=== PATIENT | female | born 1985 | race Caucasian/White ===

== ENCOUNTER 2019-03-20 10:13 | Emergency (ER) | payer OTHER ==
[~2019-03-20] VITALS: Ht 177.8 cm; Wt 63.6 kg
[2019-03-20 10:36] VITALS: TEMP 97.4
[2019-03-20] MEDS ORDERED: FLONASEALLERGY NS (11:15)
[2019-03-20] MEDS ORDERED: CLARITIN D TAB1 TAB PO (11:16)
[2019-03-20] MEDS ORDERED: TYLENOL 325MG325 MG PO (11:16)
[2019-03-20] MEDS ORDERED: ADVIL200 MG PO (11:16)
[2019-03-20 11:50] LABS: COLLECTION METHOD CLEAN CATCH
[2019-03-20 11:58] LABS: BASO # 0.1 (0.0-0.2); BASO % 0.8 % (0.0-2.0); EOS # 0.1 (0.0-0.7); EOS % 1.7 % (0-4.0); GRAN # 2.9 (1.4-6.5); GRAN % 48.8 % (42.2-75.2); HEMATOCRIT 38.9 % (37.0-47.0); HEMOGLOBIN 12.8 g/dl (12.5-16.0); LYMPH # 2.4 (1.2-3.4); MEAN CELL VOLUME 91 fl (80.0-100.0); MEAN CORPUSCULAR HEMOGLOBIN 30 pg (27.0-31.0); MEAN CORPUSCULAR HGB CONC 33 g/dl (33.0-37.0); MEAN PLATELET VOLUME 9.6 fl (7.4-10.4); MONO # 0.5 (0.1-0.6); MONO % 8.4 % (1.7-9.3); PLATELET COUNT 246 K/mm3 (130-400); REDCELL DISTRIBUTION WIDTH-CV 12.5 % (11.5-14.5)
[2019-03-20 12:05] LABS: PH 8 (5-8); SQUAMOUS EPITHELIAL None Seen /hpf; URINE APPEARANCE Clear; URINE BACTERIA None Seen /hpf; URINE BILIRUBIN Negative (NEGATIVE); URINE BLOOD Negative (NEGATIVE); URINE COLOR Straw; URINE GLUCOSE Negative (NEGATIVE); URINE KETONE Negative (NEGATIVE); URINE LEUKOCYTE ESTERASE Negative (NEGATIVE); URINE NITRATE Negative (NEGATIVE); URINE PROTEIN(semi-quant) Negative (NEGATIVE); URINE RBC None Seen /hpf; URINE UROBILINOGEN Negative (NEGATIVE)
[2019-03-20 12:14] LABS: ALANINE AMINOTRANSFERASE 18 U/L (9-52); ALBUMIN 4.5 gm/dL (3.5-5.0); ALKALINE PHOSPHATASE 55 U/L (50-136); ANION GAP 12 mmol/L (7-16); AST,SGOT 28 U/L (15-37); BLOOD UREA NITROGEN 15 mg/dL (7-17); CALCIUM 9.3 mg/dL (8.4-10.2); CARBON DIOXIDE 24 mmol/L (22-30); CHLORIDE 105 mmol/L (98-107); CREATININE, serum 0.59 (0.52-1.25); GLUCOSE 97 mg/dL (74-106); POTASSIUM 4.1 mmol/L (3.4-5.0); SODIUM 141 mmol/L (137-145); TOTAL PROTEIN 7.6 gm/dL (6.4-8.2)
[2019-03-20 12:18] LABS: C-REACTIVE PROTEIN < 0.5 mg/dL (0.0-0.9)
[2019-03-20] MEDS ORDERED: RELPAX20 MG PO (12:42)
[2019-03-20 12:47] LABS: BILIRUBIN,TOTAL 1.8 mg/dL (0.0-1.0)
[2019-03-20 13:08] VITALS: BP 105/69; PULSE 70
== END 2019-03-20 13:08 | disposition home or self-care (01) ==
LOC: COL.ER 10:13
PROVIDERS: Family Medicine
DX: G43.909 Migraine, unspecified, not intractable, without status migrainosus (principal); Z79.51 Long term (current) use of inhaled steroids
CPT/HCPCS: J0780; J1100; J1885